=== PATIENT | female | born 1990 | race Two or more races ===

== ENCOUNTER 2020-02-25 16:22 | Emergency (ER) | payer OTHER ==
[~2020-02-25] VITALS: Ht 152.4 cm; Wt 81.6 kg
[2020-02-25] MEDS ORDERED: TDAP DIPH,PERTUSS,TET VAC/PF 0.5 ML DISP.SYRIN IM ONE ×2 (16:51→17:00)
[2020-02-25] MEDS ORDERED: NEOMY/BACITRA/POLYMYXIN B OINT UD PACKET TP ONE ×2 (17:00→17:11)
[2020-02-25] MEDS ORDERED: LET TOPICAL SOLUTION 8 ML UDC TP ONE (17:00)
[2020-02-25] MEDS ORDERED: LIDOCAINE HCL 2% 20 ML VIAL TP ONE (17:00)
[2020-02-25] MEDS ORDERED: SODIUM BICARBONATE 4.2 % (NEUT) 5 ML VIAL TP ONE (17:00)
--- NOTE | 2020-02-25 17:06 | NUR ---
[facility] AT BEDSIDE
[2020-02-25] MEDS ORDERED: SODIUM BICARBONATE 4.2 % (NEUT) 5 ML VIAL ONE (17:11)
[2020-02-25] MEDS ORDERED: LIDOCAINE HCL 2% 20 ML VIAL ONE (17:11)
[2020-02-25] MEDS ORDERED: LET TOPICAL SOLUTION 8 ML UDC ONE (17:11)
--- NOTE | 2020-02-25 18:56 | NUR ---
Patient discharged to home in stable conditon. Written and verbal after care instructions given. Patient verbalizes understanding of instructions.pt walks in steady gait.
== END 2020-02-25 18:57 | disposition home or self-care (01) ==
LOC: ER 16:25
DX: S61.412A Laceration without foreign body of left hand, initial encounter (principal); S41.112A Laceration without foreign body of left upper arm, initial encounter; V49.9XXA Car occupant (driver) (passenger) injured in unspecified traffic accident, initial encounter; Y93.89 Activity, other specified; Y92.410 Unspecified street and highway as the place of occurrence of the external cause; Y99.8 Other external cause status
CPT/HCPCS: 73060; 73130; 90471; 90715; 99284; J3490 ×2; A4217; A4663